=== PATIENT | female | born 1995 | race Caucasian/White ===

== ENCOUNTER → 2021-12-26 | Outpatient (CLI) | payer SELFPAY, OTHER ==
--- NOTE | 2021-12-26 07:50 | RAD_ITS ---
STUDY: HYSTEROSALPINGOGRAM. REASON FOR EXAM: Female, 26 years old. TUBAL PATENCY FLUOROSCOPY TIME (if supplied): ( 36 seconds ) minutes/seconds. 2 images were submitted. TECHNIQUE: A hysterosalpingogram was performed by the building energy consultant. Images were obtained. COMPARISON: None. FINDINGS: The uterus is unremarkable. Both fallopian tubes are patent with free spill. RAD/Salpingogram IMPRESSION: Normal hysterosalpingogram. Electronically Signed: Ephraim Godinez MD at 8:42 EDT ,
== END | disposition home or self-care (01) ==
PROVIDERS: PCP Family Medicine; Referring Provider Obstetrics & Gynecology; Visit Provider Obstetrics & Gynecology
DX: N97.9 Female infertility, unspecified (principal)
CPT/HCPCS: 58340; 74740; Q9967

== ENCOUNTER → 2022-01-24 | Outpatient (CLI) | payer OTHER, SELFPAY ==
[2022-01-24 07:14] LABS: Absolute Lymphocyte Count 1.87 X10^3/uL (0.83-4.51); Absolute Neutrophil Count 2.5 X10^3/uL (2.0-7.7); Basophil# 0.04 X10^3/uL; Basophil% 0.8 % (0-1); Eosinophil# 0.18 X10^3/uL; Eosinophils% 3.7 % (0-5); Hematocrit 43.8 % (37-47); Hemoglobin 14.2 g/dL (12.0-15.0); Lymphocyte # 1.87 X10^3/ul (0.83-4.51); Lymphocyte % 38.2 % (19-41); Mean Corp Hgb Conc 32.4 g/dL (32-36); Mean Corpuscular Hgb 28.9 pg (27.0-32.0); Mean Corpuscular Volume 89.2 fL (81-99); Mean Platelet Vol. 9.1 fl (6.2-12.0); Monocyte# 0.33 X10^3/uL; Monocyte% 6.7 % (0-10); NRBC Flagged by Analyzer 0 % (0-5); Neutrophil # 2.47 X10^3/uL (2.7-7.7); Neutrophil % 50.4 % (47-70); Platelet Count 395 K/mm3 (150-450); RBC Distribution Width CV 13.2 % (11.6-14.6); RBC Distribution Width SD 43.3 fl (35.1-43.9); Red Blood Count 4.91 M/mm3 (4.2-5.4); White Blood Count 4.9 K/mm3 (4.4-11.0)
[2022-01-24 07:36] LABS: Glucose 75GTT - Fasting 102 mg/dL (70-99)
[2022-01-24 08:04] LABS: Glucose 75GTT - 30 minutes 142 mg/dL (100-160)
[2022-01-24 08:27] LABS: Insulin 75GTT - Fasting 8.3 mU/L (2.6-37.6)
[2022-01-24 08:28] LABS: T3 Total - Triiodothyronine 1.17 ng/mL (0.6-1.81); Vitamin B12 770 pg/mL (211-911); Vitamin D,25 Hydroxy 18.8 ng/mL
[2022-01-24 08:46] LABS: Prolactin 38.1 ng/mL
[2022-01-24 08:56] LABS: AST(SGOT) 11 U/L (15-37); Alanine Aminotransfer ALT/SGPT 23 U/L (13-56); Albumin, Serum 4.2 g/dL (3.2-5.0); Alkaline Phosphatase 62 U/L (45-117); Anion Gap 5 (5-15); BUN 9 mg/dL (7-18); BUN/Creat Ratio 11.2 RATIO (10-20); Calcium,Total 8.8 mg/dL (8.5-10.1); Chloride 104 mmol/L (98-107); Cholesterol 248 mg/dL (200); Creatinine, Serum 0.81 mg/dL (0.55-1.02); EST Glomerular Filtration Rate 91 mL/min (>60); Est Glom Filt Rate - Afr Amer 110 mL/min (>60); Estradiol 21.3 pg/mL; Ferritin 11 ng/mL (8-252); Follicle Stimulating Hormone 5.7 mIU/mL; Globulin 4.2 g/dL (2.2-4.2); Glucose 94 mg/dL (74-106); High Density Lipoprotein 47 mg/dL; Luteinizing Hormone 5.4 mIU/mL; Potassium 3.7 mmol/L (3.5-5.1); Prolactin 38.3 ng/mL; Protein, Total 8.4 g/dL (6.4-8.2); Sodium Level 139 mmol/L (136-145); T4 Total, Thyroxin 7.4 ug/dL (4.8-13.9); Triglycerides 111 mg/dL; Very Low Density Lipoprotein 22 mg/dL (5-40)
[2022-01-24 09:10] LABS: Glucose 75GTT - 60 minutes 95 mg/dL (100-160)
[2022-01-24 09:18] LABS: Insulin 75GTT - 60 min 103.6 mU/L (Not Estab)
[2022-01-24 09:27] LABS: Prolactin 15.1 ng/mL; Thyroid Stim Hormone (TSH) 7.48 uIU/mL (0.358-3.74)
[2022-01-24 09:36] LABS: Glucose 75GTT - 120 minutes 64 mg/dL (70-140)
[2022-01-24 09:39] LABS: Insulin 75GTT - 120 min 10.4 mU/L (Not Estab.)
[2022-02-02 15:07] LABS: Testosterone, % Free 1.73 % (0.50-2.80); Testosterone, Free 0.62 ng/dL (0.10-0.85); Testosterone, Total 36 ng/dL (13-71); Thyroid Peroxidase AB 400 IU/mL (0-34)
[2022-02-02 20:56] LABS: Sex Hormone-binding Globulin 57.9 nmol/L (24.6-122.0); Thyroglobulin Antibody < 1.0 IU/mL (0.0-0.9)
== END | disposition home or self-care (01) ==
LOC: LAB 06:41
PROVIDERS: PCP Family Medicine; Referring Provider Obstetrics & Gynecology; Visit Provider Obstetrics & Gynecology
DX: E28.9 Ovarian dysfunction, unspecified (principal); N92.6 Irregular menstruation, unspecified; Z31.9 Encounter for procreative management, unspecified; Z13.0 Encounter for screening for diseases of the blood and blood-forming organs and certain disorders involving the immune mechanism; Z13.228 Encounter for screening for other metabolic disorders
CPT/HCPCS: 36415; 80053; 80061; 82306; 82533; 82607; 82627; 82670; 82728; 82746; 82951; 82952; 83001; 83002; 83525; 84146; 84270; 84402; 84403; 84436; 84439; 84443; 84480; 84481; 85025; 86376; 86800; 82626

== ENCOUNTER → 2022-04-22 | Outpatient (CLI) | payer OTHER, SELFPAY ==
[2022-04-22 08:27] LABS: Free T3 2.8 pg/mL (2.18-3.98); Prolactin 8.7 ng/mL; T4 Free Direct 1.04 ng/dL (0.76-1.46); Thyroid Stim Hormone (TSH) 2.23 uIU/mL (0.358-3.74)
[2022-04-22 09:11] LABS: T3 Total - Triiodothyronine 1.11 ng/mL (0.6-1.81)
== END | disposition home or self-care (01) ==
LOC: LAB 07:30
PROVIDERS: PCP Family Medicine; Referring Provider Obstetrics & Gynecology; Visit Provider Obstetrics & Gynecology
DX: E22.1 Hyperprolactinemia (principal); E03.9 Hypothyroidism, unspecified
CPT/HCPCS: 36415; 84146; 84439; 84443; 84480; 84481

== ENCOUNTER → 2022-05-24 | Outpatient (CLI) | payer OTHER, SELFPAY ==
[2022-05-24 08:11] LABS: Prolactin 18.6 ng/mL
== END | disposition home or self-care (01) ==
LOC: LAB 06:49
PROVIDERS: PCP Family Medicine; Referring Provider Obstetrics & Gynecology; Visit Provider Obstetrics & Gynecology
DX: E22.1 Hyperprolactinemia (principal)
CPT/HCPCS: 36415; 84146

== ENCOUNTER → 2022-06-11 | Outpatient (CLI) | payer OTHER, SELFPAY ==
[2022-06-11 08:12] LABS: Progesterone Level 12.41 ng/mL (See Comment)
== END | disposition home or self-care (01) ==
LOC: LAB 06:57
PROVIDERS: PCP Family Medicine; Referring Provider Obstetrics & Gynecology; Visit Provider Obstetrics & Gynecology
DX: N92.6 Irregular menstruation, unspecified (principal)
CPT/HCPCS: 36415; 84144

== ENCOUNTER → 2022-06-21 | Outpatient (CLI) | payer OTHER, SELFPAY ==
[2022-06-21 09:07] LABS: Prolactin 5.2 ng/mL
== END | disposition home or self-care (01) ==
LOC: LAB 07:13
PROVIDERS: PCP Family Medicine; Referring Provider Obstetrics & Gynecology; Visit Provider Obstetrics & Gynecology
DX: E22.1 Hyperprolactinemia (principal)
CPT/HCPCS: 36415; 84146